=== PATIENT | male | born 1990 | race Two or more races ===

== ENCOUNTER 2019-01-10 07:45 | Emergency (ER) | payer SELFPAY ==
[2019-01-10 07:53] VITALS: TEMP 98.2; BMI 23.6
--- NOTE | 2019-01-10 07:56 | PDOC ---
History of Present Illness - General Chief Complaint: Seizure Stated Complaint: SEIZURE Time Seen by Provider: 01/10/19 07:56 History Source: Patient Exam Limitations: No Limitations - History of Present Illness Initial Comments: 01/10/19 08:30 28 yo M with PMHx of epilepsy (diagnosed 1 yr ago on Keppra) presents s/p seizure. He states that he missed his dose two days prior and did not want to double up on his meds. His brother was witness to seizure states that he was at kitchen counter making coffee when he "spaced out". He then proceeded to curl up in a ball and slowly slipped to floor on his buttocks. Brother is ademate that he did not hit his head.No loss of bowel or bladder function. He was confused immediately after episode but now back to baseline with just a mild headache. Last seizure was 2 mo ago when he missed a dose. His mother says he is very sensitive to missing doses. His neurologist is Dr. Brooks in the [place]. Last saw her 4 mo ago and has not returned because of insurance issues. Denies CP,SOLORZANO, SOB, abdominal pain, nausea, vomiting, fever or chills. Timing/Duration: 1-3 hours Severity: mild Past History - Past Medical History Allergies/Adverse Reactions: Allergies Allergy/AdvReac Type Severity Reaction Status Date / Time No Known Allergies Allergy Verified 01/10/19 07:49 Home Medications: Ambulatory Orders levETIRAcetam [Keppra -] 1,000 mg PO BID 01/10/19 COPD: No Seizures: Yes - Suicide/Smoking/Psychosocial Hx Smoking History: Never smoked Have you smoked in the past 12 months: No Information on smoking cessation initiated: No Hx Alcohol Use: No Drug/Substance Use Hx: No *Physical Exam - Vital Signs Last Vital Signs Temp Pulse Resp BP Pulse Ox 98.2 F 96 H 18 127/73 100 01/10/19 07:50 01/10/19 07:50 01/10/19 07:50 01/10/19 07:50 01/10/19 07:50 Medical Decision Making - Medical Decision Making 01/10/19 08:45 28 yo M with PMHx of epilepsy (diagnosed 1 yr ago on Keppra) presents s/p seizure 2/2 to missed dose of AED. Will load with 1000mg Keppra and give Tylenol for headache. 05/16/19 09:49 Patient feeling better. SOLORZANO improved. No seizure activity. *DC/Admit/Observation/Transfer Diagnosis at time of Disposition: Epilepsy seizure, generalized, convulsive - Discharge Dispostion Disposition: HOME Condition at time of disposition: Stable Decision to Admit order: No - Referrals - Patient Instructions Printed Discharge Instructions: DI for Seizure Disorder -- Adult Additional Instructions: Increase activity as tolerated. Resume a regular diet. Make sure you do not miss dose of seizure medication. You need to make an appointment to follow up with your Neurologist in the next few day. If you experience another seizure or develop fever or chills please return to ER immediately. - Post Discharge Activity
[2019-01-10] MEDS ORDERED: levETIRAcetam 500 MG/5 ML INJECTION VIAL IVPB ONE ×2 (08:27→08:42)
[2019-01-10] MEDS ORDERED: ACETAMINOPHEN 500 MG TABLET (FP) PO ONE (08:27)
--- NOTE | 2019-01-10 08:38 | PDOC ---
Attending Attestation - Resident Resident Name: Hunter Jolley - ED Attending Attestation I have performed the following: I have examined & evaluated the patient, The case was reviewed & discussed with the resident, I agree w/resident's findings & plan, Exceptions are as noted - HPI HPI: 01/10/19 08:34 28 M with h/o seizure d/o on keppra presents to ED with seizure. Pt states he was making coffee this morning when he seized. Pt's brother witnessed it and reports that pt appeared to curl up into a ball before he began to have generalized tonic-clonic seizure. Pt was caught by brother before he fell. Pt did not hit head on ground. In ED, pt is accompanied by mother who states he has returned to baseline mentation. Pt admits to missing 2 doses of his keppra (500mg BID) over the past 2 days. He states that this always triggers a seizure. last episode was 2 months ago when he also missed a dose. Pt denies any F/C. Denies recent illness. Endorses mild headache but denies N/V. Denies neck pain. - Physicial Exam PE: 01/10/19 08:36 "GENERAL: Awake, alert, and fully oriented, in no acute distress. HEAD: No signs of trauma EYES: PERRLA, EOMI, sclera anicteric, conjunctiva clear ENT: Auricles normal inspection, hearing grossly normal, nares patent, oropharynx clear without exudates. Moist mucosa NECK: Nontender, no stepoffs, Normal ROM, supple, no lymphadenopathy, JVD, or masses LUNGS: Breath sounds equal, clear to auscultation bilaterally. No wheezes, and no crackles HEART: Regular rate and rhythm, normal S1 and S2, no murmurs, rubs or gallops ABDOMEN: Soft, nontender, normoactive bowel sounds. No guarding, no rebound. No masses EXTREMITIES: Normal range of motion, no edema. No clubbing or cyanosis. No cords, erythema, or tenderness NEUROLOGICAL: Cranial nerves II through XII intact. 5/5 strength and sensation in all extremities, Normal speech, normal gait, normal cerebellar function SKIN: Warm, Dry, normal turgor, no rashes or lesions noted. - Medical Decision Making 01/10/19 08:36 28 M with seizure, likely 2/2 missed dose of keppra. In ED, pt well appearing with normal exam, no neuro deficits. Vitals wnl. Pt with no infectious symptoms. No evidence of head trauma or other injury. - Load with keppra - F/u neuro Pt is well appearing, with normal vitals. Clinically stable for DC at this time. I discussed the physical exam findings, ancillary test results and final diagnoses with the patient. I answered all of the patient's questions. The patient was satisfied with the care received and felt comfortable with the discharge plan and treatment plan. The patient agrees to follow up with the primary care physician within 24-72 hours.
[2019-01-10] MEDS ORDERED: ACETAMINOPHEN 325 MG TABLET (FP) ONE (08:42)
[2019-01-10 09:42] VITALS: BP 109/65; PULSE 67
== END 2019-01-10 09:44 | disposition home or self-care (01) ==
LOC: JER 07:45
PROC: 3E033GC Introduction of Other Therapeutic Substance into Peripheral Vein, Percutaneous Approach (ICD-10-PCS; principal; 2019-01-10)
DX: G40.409 Other generalized epilepsy and epileptic syndromes, not intractable, without status epilepticus (principal)
CPT/HCPCS: 99283-25

== ENCOUNTER 2019-02-17 10:09 | Emergency (ER) | payer SELFPAY ==
[2019-02-17 10:14] VITALS: BP 128/71; PULSE 74; TEMP 98; BMI 23.6
--- NOTE | 2019-02-17 10:28 | PDOC ---
History of Present Illness - General Chief Complaint: RX Refill Stated Complaint: REFILL Time Seen by Provider: 02/17/19 10:20 History Source: Patient Exam Limitations: No Limitations - History of Present Illness Initial Comments: 02/17/19 10:26 states had some insurance issuesand insurance will be reinstated as of February 25. Has run out of his Keppra and is very sensitive to missing medications. Last seizure was approximately 2 weeks ago secondary to his missing 1 dose.He denies any other medication use, denies drug or alcohol use.Denies any recent seizure activity. Timing/Duration: unsure Past History - Travel Traveled outside of the country in the last 30 days: No Close contact w/someone who was outside of country & ill: No - Past Medical History Allergies/Adverse Reactions: Allergies Allergy/AdvReac Type Severity Reaction Status Date / Time No Known Allergies Allergy Verified 02/17/19 10:14 Home Medications: Ambulatory Orders levETIRAcetam [Keppra -] 1,000 mg PO BID 01/10/19 levETIRAcetam [Keppra -] 1,000 mg PO BID #40 tablet 02/17/19 COPD: No Seizures: Yes - Suicide/Smoking/Psychosocial Hx Smoking History: Current some day smoker Have you smoked in the past 12 months: No Information on smoking cessation initiated: No Hx Alcohol Use: No Drug/Substance Use Hx: No Review of Systems - Review of Systems Able to Perform ROS?: Yes Is the patient limited Pashto proficient: Yes Constitutional: Yes: See HPI. No: Symptoms Reported, Chills, Fever HEENTM: Yes: See HPI. No: Symptoms Reported Neurological: Yes: See HPI. No: Symptoms reported, Headache, Seizure Psychiatric: No: Anxiety All Other Systems: Reviewed and Negative *Physical Exam - Vital Signs Last Vital Signs Temp Pulse Resp BP Pulse Ox 98 F 74 18 128/71 99 02/17/19 10:11 02/17/19 10:11 02/17/19 10:11 02/17/19 10:11 02/17/19 10:11 - Physical Exam General Appearance: Yes: Nourished, Appropriately Dressed. No: Apparent Distress HEENT: positive: EOMI, CHELSEA, Normal ENT Inspection, Normal Voice, TMs Normal, Pharynx Normal Neck: positive: Supple. negative: Tender Respiratory/Chest: positive: Lungs Clear Gastrointestinal/Abdominal: positive: Soft Musculoskeletal: positive: Normal Inspection Extremity: positive: Normal Capillary Refill, Normal Inspection Neurologic: positive: neurodiagnostic tech II-XII NML intact, Fully Oriented, Alert, Normal Mood/ Affect, Normal Response, Motor Strength 12/30 Medical Decision Making - Medical Decision Making 02/17/19 10:27 medication request for Keppra. We will treat for 10 days as will cover until insurance reinstitutes. Patient understands need for follow-up with neurology. *DC/Admit/Observation/Transfer Diagnosis at time of Disposition: Encounter for medication refill - Discharge Dispostion Disposition: HOME Condition at time of disposition: Stable Decision to Admit order: No - Prescriptions Prescriptions: levETIRAcetam [Keppra -] 1,000 mg PO BID #40 tablet - Referrals - Patient Instructions Additional Instructions: see Neurologist as soon as possible for evaluation and continuation of medication refills. - Post Discharge Activity Forms/Work/School Notes: Back to Work
== END 2019-02-17 10:27 | disposition home or self-care (01) ==
LOC: JERFT 10:09
DX: G40.909 Epilepsy, unspecified, not intractable, without status epilepticus (principal); Z76.0 Encounter for issue of repeat prescription
CPT/HCPCS: 99282-25

== ENCOUNTER 2019-02-27 08:41 | Emergency (ER) | payer SELFPAY ==
[2019-02-27 08:46] VITALS: BP 106/62; PULSE 78; TEMP 97.8; BMI 23.6
[2019-02-27] MEDS ORDERED: levETIRAcetam 500 MG TABLET (FP) PO ONE ×2 (09:14→09:27)
--- NOTE | 2019-02-27 09:20 | PDOC ---
History of Present Illness - General Chief Complaint: RX Refill Stated Complaint: NEEDS PERSCRIPTION Time Seen by Provider: 02/27/19 09:03 History Source: Patient Exam Limitations: No Limitations Past History - Past Medical History Allergies/Adverse Reactions: Allergies Allergy/AdvReac Type Severity Reaction Status Date / Time No Known Allergies Allergy Verified 02/27/19 08:46 Home Medications: Ambulatory Orders levETIRAcetam [Keppra -] 1,000 mg PO BID 01/10/19 levETIRAcetam [Keppra -] 1,000 mg PO BID #80 tablet 02/27/19 COPD: No Seizures: Yes - Suicide/Smoking/Psychosocial Hx Smoking History: Never smoked Have you smoked in the past 12 months: No Information on smoking cessation initiated: No Hx Alcohol Use: Yes (occasional) Drug/Substance Use Hx: No *Physical Exam - Vital Signs Last Vital Signs Temp Pulse Resp BP Pulse Ox 97.8 F 78 18 106/62 99 02/27/19 08:45 02/27/19 08:45 02/27/19 08:45 02/27/19 08:45 02/27/19 09:07 - Physical Exam General Appearance: No: Apparent Distress HEENT: positive: CHELSEA Neck: positive: Supple Respiratory/Chest: positive: Lungs Clear, Normal Breath Sounds. negative: Respiratory Distress Cardiovascular: positive: Regular Rhythm, Regular Rate, S1, S2. negative: Murmur Gastrointestinal/Abdominal: positive: Normal Bowel Sounds, Soft. negative: Tender, Distended, Guarding, Rebound Integumentary: positive: Normal Color Neurologic: positive: Alert, Normal Mood/Affect Medical Decision Making - Medical Decision Making 29 y/o M hx of seizures (on Keppra) comes in for prescription refill. Patient was here 02/17 for prescription refill as well (got 10 days of refill). States has been having difficulty with follow-up as his insurance was not active; his insurance just became active 2 days ago. When he called neurologist office ( located in [place]), he states they gave appointment for 03/18 and was told the doctor will call him back regarding prescription refill, but he never got a call back. He also has been unable to f/u with his PCP. Last dose of Keppra was last night. Patient is wary of missing dose given he had seizure on 01/10 due to missed dose (that was his last seizure). Denies alcohol use, drugs, sob, cp, abd pain, n/v/d, rash. Will provide refill Patient also requesting number for another neurologist Given dose of Keppra for this AM 02/27/19 09:19 *DC/Admit/Observation/Transfer Diagnosis at time of Disposition: Prescription refill - Discharge Dispostion Disposition: HOME Condition at time of disposition: Stable Decision to Admit order: No - Prescriptions Prescriptions: levETIRAcetam [Keppra -] 1,000 mg PO BID #80 tablet - Referrals Referrals: Isabell Thomas MD [Staff Physician] - 2 Days - Patient Instructions Printed Discharge Instructions: DI for Seizure Disorder -- Adult Additional Instructions: Thank you for choosing [facility]. It was a pleasure taking care of you. You were provided refill of your seizure medication until you can follow-up with neurologist Return to the Emergency Department for any concerning symptoms. - Post Discharge Activity
== END 2019-02-27 09:25 | disposition home or self-care (01) ==
LOC: JERFT 08:41
DX: G40.909 Epilepsy, unspecified, not intractable, without status epilepticus (principal)
CPT/HCPCS: 99282-25

== ENCOUNTER 2020-03-28 14:23 | Emergency (ER) | payer OTHER ==
--- NOTE | 2020-03-28 14:31 | PDOC ---
Rapid Medical Evaluation Time Seen by Provider: 03/28/20 14:26 Medical Evaluation: Allergies Allergy/AdvReac Type Severity Reaction Status Date / Time No Known Allergies Allergy Verified 02/27/19 08:46 03/28/20 14:28 I performed a brief in-person evaluation of this patient. Pt is a 30 y/o male who presents to the ED with complaint of anterior chest pain since an appliance fell onto his chest one week ago. He was moving the appliance and it fell onto his chest. He admits to having pain with deep inspiration. He denies any sob. Pertinent physical exam findings: + anterior chest wall tenderness to palpation, clear lungs, s1s2 I have ordered the following: cxr, ekg Patient to proceed to ED for further evaluation. Discharge Disposition - Diagnosis Chest wall pain - Referrals - Patient Instructions - Post Discharge Activity
[2020-03-28 14:33] VITALS: BP 117/75; PULSE 63; TEMP 98.6; BMI 21.2
--- NOTE | 2020-03-28 15:15 | PDOC ---
History of Present Illness - General Chief Complaint: Injury Stated Complaint: INJURY Time Seen by Provider: 03/28/20 14:26 History Source: Patient Exam Limitations: No Limitations - History of Present Illness Initial Comments: 03/28/20 15:12 30-year-old male history of seizures on Keppra presents complaining of right anterior chest wall pain x 7 days. Patient reports he was moving a refrigerator when it "fell on top of me ". Patient reports pain is on inspiration and expiration, also pain worsens with movement. Denies shortness of breath, nausea, abdominal pain, back pain, vomiting or any other complaint. Patient has not taken any pain medication. ROS: as above PE: GENERAL: well-appearing, NAD HEAD: NCAT EYES: Pupils equal, round and reactive to light, sclera anicteric, conjunctiva clear ENT: pharynx: no erythema, no exudate, uvula midline NECK: supple CHEST: nontender, no crepitus, no ecchymosis noted RESP: clear, no w/r/r CARDIO: rrr, no m/g/r ABD: +BS, soft, nontender, non distended BACK: no midline spinal ttp, no CVAT EXTREMITIES: Normal range of motion, no edema NEUROLOGICAL: Normal speech, normal gait SKIN: Warm, Dry Is this a multiple visit Asthma Patient?: No Past History - Medical History Allergies/Adverse Reactions: Allergies Allergy/AdvReac Type Severity Reaction Status Date / Time No Known Allergies Allergy Verified 02/27/19 08:46 Home Medications: Ambulatory Orders levETIRAcetam [Keppra -] 1,000 mg PO BID 01/10/19 levETIRAcetam [Keppra -] 1,000 mg PO BID #80 tablet 02/27/19 COPD: No Seizures: Yes - Psycho-Social/Smoking History Smoking History: Never smoked Have you smoked in the past 12 months: No - Substance Abuse Hx (Audit-C & DAST Scrn) How often the patient has a drink containing alcohol: Never Score: In Men: 4 or > Positive; In Women: 3 or > Positive: 0 Screen Result (Pos requires Nsg. Audit-10AR): Negative In the last yr the pt used illegal drug/Rx for NonMed reason: Yes Score: Yes response is considered Positive: 1 Screen Result (Positive result requires Nsg. DAST-10): Positive *Physical Exam - Vital Signs Last Vital Signs Temp Pulse Resp BP Pulse Ox 98.6 F 63 18 117/75 97 03/28/20 14:28 03/28/20 14:28 03/28/20 14:28 03/28/20 14:28 03/28/20 14:28 Medical Decision Making - Medical Decision Making 03/28/20 15:13 30-year-old male history of seizures on Keppra presents complaining of right anterior chest wall pain x 7 days. Patient reports he was moving a refrigerator when it "fell on top of me ". Patient reports pain is on inspiration and expiration, also pain worsens with movement. Denies shortness of breath, nausea, abdominal pain, back pain, vomiting or any other complaint. Patient has not taken any pain medication. ecg: HR 66, NSR, no st or tw changes cxr: no acute findings ibuprofen 600 mg one tab po Discharge - Discharge Information Problems reviewed: Yes Clinical Impression/Diagnosis: Chest wall pain Condition: Stable Disposition: HOME - Admission No - Follow up/Referral - Patient Discharge Instructions Additional Instructions: Alternate between ibuprofen 600 mg and acetaminophen 975 mg 1 tablet every 6 hours as needed Follow-up with your doctor within 1 week Return to the ED if chest pain, shortness of breath or worsening symptoms - Post Discharge Activity
[2020-03-28] MEDS ORDERED: IBUPROFEN 600 MG TABLET (FP) PO ONE ×2 (15:16→15:17)
--- NOTE | 2020-03-30 10:08 | EKG ---
Test Reason : Blood Pressure : / mmHG Vent. Rate : 066 BPM Atrial Rate : 066 BPM P-R Int : 144 ms QRS Dur : 100 ms QT Int : 372 ms P-R-T Axes : 080 098 056 degrees QTc Int : 389 ms NORMAL SINUS RHYTHM POSSIBLE LEFT ATRIAL ENLARGEMENT RIGHTWARD AXIS BORDERLINE ECG NO PREVIOUS ECGS AVAILABLE Confirmed by Cedrick Mariano ([id number]) on 03/30/2020 10:08:11 AM Referred By: Confirmed By:Cedrick Mariano
== END 2020-03-28 15:20 | disposition home or self-care (01) ==
LOC: JER 14:23
DX: R07.89 Other chest pain (principal)
CPT/HCPCS: 71046-TC-FY; 93005; 93010; 99284-25